=== PATIENT | male | born 1950 | race African-American/Black ===

== ENCOUNTER 2021-02-22 22:22 | Inpatient (IN) | payer OTHER, MEDICAID ==
[~2021-02-22] VITALS: Ht 167.6 cm; Wt 57.6 kg
[2021-02-22 23:18] LABS: Basophils # (auto) 0 10 ^3/uL (0-0.2); Basophils % (auto) 0.3 % (0.0-2.0); Eosinophils # (auto) 0.1 10 ^3/uL (0-0.8); Eosinophils % (auto) 0.6 % (0.0-7.0); Hematocrit 33.4 % (41.0-53.0); Hemoglobin 10.6 g/dL (13.5-17.5); Lymphocytes # (auto) 0.4 10 ^3/uL (0.4-5.4); Lymphocytes % (auto) 4.1 % (10.0-50.0); Mean Corpuscular Hemoglobin 29.1 pg (28.0-32.0); Mean Corpuscular Hgb Conc. 31.8 g/dL (32.0-36.0); Mean Corpuscular Volume 91.2 fL (80.0-100.0); Monocytes # (auto) 0.5 10 ^3/uL (0-1.3); Monocytes % (auto) 5.8 % (0.0-12.0); Neutrophils # (auto) 7.8 10 ^3/uL (1.6-8.6); Neutrophils % (auto) 89.2 % (37.0-80.0); Nucleated Red Blood Cells % 0.1 %; Red Blood Cells 3.66 10^6/uL (4.5-5.90); Red Cell Distribution Width 17.4 % (11.8-14.3); White Blood Cell 8.8 10^3/uL (4.4-10.8)
[2021-02-22 23:34] LABS: INR 1.1 (0.9-1.15); Partial Thromboplastin Time 29.3 sec (23.6-33.0)
[2021-02-22 23:41] LABS: Albumin 2.8 g/dL (3.4-5.0); BUN/Creatinine Ratio 9.7; Calcium 8.2 mg/dL (8.5-10.1); Magnesium 2.5 mg/dL (1.6-2.6)
[2021-02-22 23:46] LABS: Bilirubin, Total 0.5 mg/dL (0.2-1.0); Total Protein 7.2 g/dL (6.4-8.2)
[2021-02-22 23:53] LABS: Potassium 6.2 mmol/L (3.5-5.1)
[2021-02-23] MEDS ORDERED: CALCIUM GLUC 1,000mg/50ml-NS 50 ML IV ONE
[2021-02-23] MEDS ORDERED: SODIUM BICARBONATE 8.4% INJ 50ML SYRINGE IV ONE
[2021-02-23] MEDS ORDERED: InsuLIN REG 1unit/0.01ml Soln (100units/ml) IV ONE
[2021-02-23] MEDS ORDERED: SODIUM ZIRCONIUM CYCL 10 GM PAK PO ONE
[2021-02-23] MEDS ORDERED: DEXTROSE (50%) 50ML SYRG IV ONE
[2021-02-23] MEDS ORDERED: ACETAMINOPHEN 325 MG TAB PO ONE (03:45)
[2021-02-23] MEDS ORDERED: HEPARIN DRIP/D5W 100UNITS/ML 250 ML IV SCH ×4 (04:30→12:00)
[2021-02-23] MEDS ORDERED: HEPARIN SODIUM (PORCINE) 5000 UNITS/ML 1ML VIAL IV ONE (04:30)
[2021-02-23 05:28] LABS: Basophils # (auto) 0 10 ^3/uL (0-0.2); Basophils % (auto) 0.3 % (0.0-2.0); Eosinophils # (auto) 0.1 10 ^3/uL (0-0.8); Eosinophils % (auto) 1.2 % (0.0-7.0); Hematocrit 31.2 % (41.0-53.0); Hemoglobin 10.2 g/dL (13.5-17.5); Lymphocytes # (auto) 0.4 10 ^3/uL (0.4-5.4); Lymphocytes % (auto) 3.8 % (10.0-50.0); Mean Corpuscular Hemoglobin 29.7 pg (28.0-32.0); Mean Corpuscular Hgb Conc. 32.8 g/dL (32.0-36.0); Mean Corpuscular Volume 90.7 fL (80.0-100.0); Monocytes # (auto) 0.8 10 ^3/uL (0-1.3); Monocytes % (auto) 8.2 % (0.0-12.0); Neutrophils # (auto) 8.4 10 ^3/uL (1.6-8.6); Neutrophils % (auto) 86.5 % (37.0-80.0); Red Blood Cells 3.44 10^6/uL (4.5-5.90); Red Cell Distribution Width 16.8 % (11.8-14.3); White Blood Cell 9.7 10^3/uL (4.4-10.8)
[2021-02-23 05:49] LABS: INR 1.09 (0.9-1.15); Partial Thromboplastin Time 29.1 sec (23.6-33.0)
[2021-02-23] MEDS ORDERED: MORPHINE SULFATE INJECTION 2 MG/ML SYRG IV PRN (07:00)
[2021-02-23] MEDS ORDERED: DOCUSATE SOD 100 MG CAP PO PRN (07:00)
[2021-02-23] MEDS ORDERED: DEXTROSE (50%) 50ML SYRG IV PRN (07:00)
[2021-02-23] MEDS: ACCU-CHEK COMFORT CURVE STRIP VI SCH ×4 (07:00→21:24)
[2021-02-23] MEDS ORDERED: NITROGLYCERIN 0.4 MG SL TAB SL PRN (07:00)
[2021-02-23] MEDS: InsuLIN REG 1unit/0.01ml Soln (100units/ml) SC SCH ×2 (07:00→11:30)
[2021-02-23] MEDS ORDERED: ONDANSETRON HCL 4 MG/2 ML VIAL IV PRN (07:00)
[2021-02-23 07:44] LABS: Basophils # (auto) 0.1 10 ^3/uL (0-0.2); Basophils % (auto) 0.7 % (0.0-2.0); Eosinophils # (auto) 0.1 10 ^3/uL (0-0.8); Eosinophils % (auto) 0.9 % (0.0-7.0); Hematocrit 32.2 % (41.0-53.0); Hemoglobin 10.3 g/dL (13.5-17.5); Lymphocytes # (auto) 0.2 10 ^3/uL (0.4-5.4); Lymphocytes % (auto) 2.3 % (10.0-50.0); Mean Corpuscular Hemoglobin 29.1 pg (28.0-32.0); Mean Corpuscular Hgb Conc. 31.9 g/dL (32.0-36.0); Mean Corpuscular Volume 91.1 fL (80.0-100.0); Monocytes # (auto) 0.6 10 ^3/uL (0-1.3); Monocytes % (auto) 5.2 % (0.0-12.0); Neutrophils # (auto) 9.7 10 ^3/uL (1.6-8.6); Neutrophils % (auto) 90.9 % (37.0-80.0); Red Blood Cells 3.54 10^6/uL (4.5-5.90); Red Cell Distribution Width 17.1 % (11.8-14.3); White Blood Cell 10.7 10^3/uL (4.4-10.8)
[2021-02-23 07:58] LABS: Albumin 2.7 g/dL (3.4-5.0); BUN/Creatinine Ratio 9.5; Calcium 8.6 mg/dL (8.5-10.1)
[2021-02-23 08:01] LABS: Bilirubin, Total 0.4 mg/dL (0.2-1.0); Total Protein 7.2 g/dL (6.4-8.2)
[2021-02-23 08:16] LABS: Cholesterol 113 mg/dL (< 200)
[2021-02-23 08:19] LABS: HDL Cholesterol 73 mg/dL (40-59); LDL Cholesterol 32 mg/dL (< 100); Triglycerides 54 mg/dL (< 150)
[2021-02-23] MEDS ORDERED: SODIUM CHL 0.9% 1000 ML BAG XX ONE (09:45)
[2021-02-23] MEDS: ASCORBIC ACID 500 MG TAB PO SCH ×2 (10:00→21:24)
[2021-02-23] MEDS: MULTIPLE VITAMIN TAB PO SCH ×2 (10:00→21:24)
[2021-02-23] MEDS ORDERED: ZINC SULFATE 220mg CAP or TAB PO SCH (10:00)
[2021-02-23 10:42] LABS: Partial Thromboplastin Time > 139.0 sec (23.6-33.0)
[2021-02-23] MEDS: SODIUM CHLOR 0.9% PF (SALINE LOCK) 10ML VIAL/SYR IV SCH ×2 (14:00→21:24)
[2021-02-23 19:54] VITALS: BP 155/91
[2021-02-23] MEDS: HYDROcodone-ACET 5/325MG TAB PO PRN (21:28)
[2021-02-23] MEDS ORDERED: ONDANSETRON HCL 4 MG/2 ML VIAL ONE (21:31)
[2021-02-23 21:48] VITALS: BP 155/91
[2021-02-24] MEDS: HYDROcodone-ACET 5/325MG TAB PO PRN ×3 (01:45→22:00)
[2021-02-24 05:30] VITALS: BP 144/72
[2021-02-24] MEDS: ACCU-CHEK COMFORT CURVE STRIP VI SCH ×4 (06:09→22:22)
[2021-02-24] MEDS: SODIUM CHLOR 0.9% PF (SALINE LOCK) 10ML VIAL/SYR IV SCH ×3 (06:09→22:22)
[2021-02-24 09:00] VITALS: BP 155/77
[2021-02-24 11:01] LABS: Basophils # (auto) 0 10 ^3/uL (0-0.2); Basophils % (auto) 0.4 % (0.0-2.0); Eosinophils # (auto) 0 10 ^3/uL (0-0.8); Eosinophils % (auto) 0.5 % (0.0-7.0); Hematocrit 30.9 % (41.0-53.0); Lymphocytes # (auto) 0.4 10 ^3/uL (0.4-5.4); Lymphocytes % (auto) 4.5 % (10.0-50.0); Mean Corpuscular Hemoglobin 29.4 pg (28.0-32.0); Mean Corpuscular Hgb Conc. 32.2 g/dL (32.0-36.0); Mean Corpuscular Volume 91.1 fL (80.0-100.0); Monocytes # (auto) 0.6 10 ^3/uL (0-1.3); Monocytes % (auto) 7.1 % (0.0-12.0); Neutrophils # (auto) 7.6 10 ^3/uL (1.6-8.6); Neutrophils % (auto) 87.5 % (37.0-80.0); Red Cell Distribution Width 16.8 % (11.8-14.3); White Blood Cell 8.7 10^3/uL (4.4-10.8)
[2021-02-24 11:22] LABS: Albumin 2.7 g/dL (3.4-5.0); Calcium 8.1 mg/dL (8.5-10.1); Potassium 5.4 mmol/L (3.5-5.1)
[2021-02-24 11:26] LABS: BUN/Creatinine Ratio 9.4; Bilirubin, Total 0.3 mg/dL (0.2-1.0); Total Protein 7.2 g/dL (6.4-8.2)
[2021-02-24] MEDS ORDERED: cefTRIAXone 1GM/50ML D5W 50 ML IV ONE (11:30)
[2021-02-24] MEDS: ASCORBIC ACID 500 MG TAB PO SCH ×2 (12:04→22:22)
[2021-02-24] MEDS ORDERED: PIPERACILLIN-TAZOB 2.25GM 0.75 GM in D5W 5% 50 ML IV SCH (12:30)
[2021-02-24 13:00] VITALS: BP 150/78
[2021-02-24] MEDS ORDERED: PIPERACILLIN-TAZOB 2.25GM 50 ML IV ONE (13:45)
[2021-02-24 17:00] VITALS: BP 123/94
[2021-02-24] MEDS: ACETAMINOPHEN 325 MG TAB PO PRN (20:40)
[2021-02-24 22:00] VITALS: BP 158/82
[2021-02-24] MEDS: PIPERACILLIN-TAZOB 2.25GM 50 ML IV SCH (22:22)
[2021-02-25] MEDS: HYDROcodone-ACET 5/325MG TAB PO PRN ×2 (01:55→09:06)
[2021-02-25 05:00] VITALS: BP 186/88
[2021-02-25] MEDS: SODIUM CHLOR 0.9% PF (SALINE LOCK) 10ML VIAL/SYR IV SCH ×3 (05:11→21:57)
[2021-02-25] MEDS: ACCU-CHEK COMFORT CURVE STRIP VI SCH ×4 (05:11→21:58)
[2021-02-25] MEDS: hydrALAZINE HCL 20 MG/ML VL IV PRN (05:41)
[2021-02-25 09:00] VITALS: BP 114/62
[2021-02-25] MEDS ORDERED: cefTRIAXone 1GM/50ML D5W 50 ML IV SCH (09:00)
[2021-02-25 10:03] LABS: Basophils # (auto) 0 10 ^3/uL (0-0.2); Basophils % (auto) 0.3 % (0.0-2.0); Eosinophils # (auto) 0.1 10 ^3/uL (0-0.8); Eosinophils % (auto) 1.3 % (0.0-7.0); Hematocrit 29.7 % (41.0-53.0); Hemoglobin 9.5 g/dL (13.5-17.5); Lymphocytes # (auto) 0.7 10 ^3/uL (0.4-5.4); Lymphocytes % (auto) 7.2 % (10.0-50.0); Mean Corpuscular Hemoglobin 29.6 pg (28.0-32.0); Mean Corpuscular Hgb Conc. 31.9 g/dL (32.0-36.0); Mean Corpuscular Volume 92.8 fL (80.0-100.0); Monocytes # (auto) 0.9 10 ^3/uL (0-1.3); Monocytes % (auto) 9.7 % (0.0-12.0); Neutrophils # (auto) 7.4 10 ^3/uL (1.6-8.6); Neutrophils % (auto) 81.5 % (37.0-80.0); Nucleated Red Blood Cells % 0.1 %; Red Cell Distribution Width 16.8 % (11.8-14.3); White Blood Cell 9.1 10^3/uL (4.4-10.8)
[2021-02-25 10:12] LABS: Albumin 2.7 g/dL (3.4-5.0); BUN/Creatinine Ratio 9.4; Calcium 7.7 mg/dL (8.5-10.1); Potassium 5.3 mmol/L (3.5-5.1)
[2021-02-25 10:15] LABS: Bilirubin, Total 0.3 mg/dL (0.2-1.0); Total Protein 6.6 g/dL (6.4-8.2)
[2021-02-25] MEDS: MULTIPLE VITAMIN TAB PO SCH (10:59)
[2021-02-25] MEDS: PIPERACILLIN-TAZOB 2.25GM 50 ML IV SCH ×2 (10:59→21:58)
[2021-02-25] MEDS: ASCORBIC ACID 500 MG TAB PO SCH ×2 (10:59→21:58)
[2021-02-25 13:00] VITALS: BP 146/72
[2021-02-25 17:00] VITALS: BP 150/71
[2021-02-25] MEDS: ACETAMINOPHEN 325 MG TAB PO PRN (21:59)
[2021-02-25 22:00] VITALS: BP 126/60
[2021-02-26 05:00] VITALS: BP 176/82
[2021-02-26 05:27] LABS: Basophils # (auto) 0.1 10 ^3/uL (0-0.2); Basophils % (auto) 0.8 % (0.0-2.0); Eosinophils # (auto) 0.1 10 ^3/uL (0-0.8); Eosinophils % (auto) 1.6 % (0.0-7.0); Hematocrit 29.1 % (41.0-53.0); Hemoglobin 9.4 g/dL (13.5-17.5); Lymphocytes # (auto) 0.4 10 ^3/uL (0.4-5.4); Lymphocytes % (auto) 5.7 % (10.0-50.0); Mean Corpuscular Hemoglobin 29.7 pg (28.0-32.0); Mean Corpuscular Hgb Conc. 32.2 g/dL (32.0-36.0); Mean Corpuscular Volume 92.1 fL (80.0-100.0); Monocytes # (auto) 0.8 10 ^3/uL (0-1.3); Neutrophils # (auto) 6.4 10 ^3/uL (1.6-8.6); Neutrophils % (auto) 81.9 % (37.0-80.0); Red Blood Cells 3.16 10^6/uL (4.5-5.90); Red Cell Distribution Width 16.9 % (11.8-14.3); White Blood Cell 7.8 10^3/uL (4.4-10.8)
[2021-02-26 06:09] LABS: Albumin 2.6 g/dL (3.4-5.0); BUN/Creatinine Ratio 9.2; Bilirubin, Total 0.3 mg/dL (0.2-1.0); Calcium 8.2 mg/dL (8.5-10.1); Total Protein 6.8 g/dL (6.4-8.2)
[2021-02-26] MEDS: ACCU-CHEK COMFORT CURVE STRIP VI SCH ×4 (06:29→23:50)
[2021-02-26] MEDS: SODIUM CHLOR 0.9% PF (SALINE LOCK) 10ML VIAL/SYR IV SCH ×3 (06:30→22:00)
[2021-02-26] MEDS: SODIUM ZIRCONIUM CYCL 10 GM PAK PO SCH ×3 (07:58→23:27)
[2021-02-26 09:00] VITALS: BP 176/84
[2021-02-26 09:39] LABS: Hepatitis A Ab IgM Negative
[2021-02-26 09:40] LABS: Hepatitis B Core IgM Negative; Hepatitis B Surface Antigen Negative (Negative); Hepatitis C Antibody Negative (Negative)
[2021-02-26] MEDS ORDERED: SODIUM ZIRCONIUM CYCL 10 GM PAK PO ONE (10:00)
[2021-02-26] MEDS: PIPERACILLIN-TAZOB 2.25GM 50 ML IV SCH ×2 (10:04→23:27)
[2021-02-26] MEDS: ASCORBIC ACID 500 MG TAB PO SCH ×2 (10:05→22:00)
[2021-02-26] MEDS: MULTIPLE VITAMIN TAB PO SCH (10:05)
[2021-02-26 13:00] VITALS: BP 184/86
[2021-02-26] MEDS ORDERED: InsuLIN REG 1unit/0.01ml Soln (100units/ml) IV ONE (15:00)
[2021-02-26] MEDS ORDERED: DEXTROSE (50%) 50ML SYRG IV ONE (15:00)
[2021-02-26 17:00] VITALS: BP 185/90
[2021-02-26] MEDS: amLODIPine BESYLATE 5 MG TAB PO SCH (17:35)
[2021-02-26 22:00] VITALS: BP 175/72
[2021-02-26] MEDS ORDERED: METOPROLOL TARTRATE 25 MG TAB PO SCH (22:00)
[2021-02-26] MEDS: hydrALAZINE HCL 20 MG/ML VL IV PRN (23:24)
[2021-02-26 23:51] VITALS: BP 131/60
[2021-02-27 05:00] VITALS: BP 160/83
[2021-02-27] MEDS: SODIUM CHLOR 0.9% PF (SALINE LOCK) 10ML VIAL/SYR IV SCH ×3 (05:26→20:51)
[2021-02-27 06:04] LABS: Basophils # (auto) 0 10 ^3/uL (0-0.2); Basophils % (auto) 0.5 % (0.0-2.0); Eosinophils # (auto) 0 10 ^3/uL (0-0.8); Eosinophils % (auto) 0.2 % (0.0-7.0); Hematocrit 32.4 % (41.0-53.0); Hemoglobin 10.5 g/dL (13.5-17.5); Lymphocytes # (auto) 0.3 10 ^3/uL (0.4-5.4); Lymphocytes % (auto) 4.5 % (10.0-50.0); Mean Corpuscular Hemoglobin 29.7 pg (28.0-32.0); Mean Corpuscular Hgb Conc. 32.5 g/dL (32.0-36.0); Mean Corpuscular Volume 91.4 fL (80.0-100.0); Monocytes # (auto) 0.3 10 ^3/uL (0-1.3); Monocytes % (auto) 3.9 % (0.0-12.0); Neutrophils # (auto) 6.8 10 ^3/uL (1.6-8.6); Neutrophils % (auto) 90.9 % (37.0-80.0); Nucleated Red Blood Cells % 0.1 %; Red Blood Cells 3.54 10^6/uL (4.5-5.90); Red Cell Distribution Width 17.2 % (11.8-14.3); White Blood Cell 7.5 10^3/uL (4.4-10.8)
[2021-02-27] MEDS: ACCU-CHEK COMFORT CURVE STRIP VI SCH ×4 (06:14→22:28)
[2021-02-27] MEDS: hydrALAZINE HCL 20 MG/ML VL IV PRN ×2 (06:20→18:30)
[2021-02-27] MEDS: SODIUM ZIRCONIUM CYCL 10 GM PAK PO SCH ×3 (06:21→22:28)
[2021-02-27 06:37] LABS: Albumin 2.8 g/dL (3.4-5.0); BUN/Creatinine Ratio 10.6; Bilirubin, Total 0.4 mg/dL (0.2-1.0); Calcium 8.1 mg/dL (8.5-10.1); Total Protein 7.3 g/dL (6.4-8.2)
[2021-02-27] MEDS ORDERED: SODIUM CHL 0.9% 1000 ML BAG XX ONE (07:00)
[2021-02-27 07:02] VITALS: BP 164/78
[2021-02-27 07:07] LABS: Potassium 5.6 mmol/L (3.5-5.1)
[2021-02-27 09:00] VITALS: BP 166/76
[2021-02-27] MEDS: PIPERACILLIN-TAZOB 2.25GM 50 ML IV SCH ×2 (11:00→20:51)
[2021-02-27 13:00] VITALS: BP 138/79
[2021-02-27] MEDS: levoFLOXacin 250MG 50 ML IV SCH (13:30)
[2021-02-27] MEDS: MULTIPLE VITAMIN TAB PO SCH (13:30)
[2021-02-27] MEDS: ASCORBIC ACID 500 MG TAB PO SCH ×2 (13:30→20:41)
[2021-02-27] MEDS: amLODIPine BESYLATE 5 MG TAB PO SCH (13:34)
[2021-02-27 16:39] VITALS: BP 185/79
[2021-02-27] MEDS: ACETAMINOPHEN 325 MG TAB PO PRN (19:54)
[2021-02-27] MEDS ORDERED: EPOETIN ALFA-EPBX 10,000 UNIT/1ML VIAL SC ONE (21:00)
[2021-02-27 22:00] VITALS: BP 144/64
[2021-02-28 05:00] VITALS: BP 163/75
[2021-02-28] MEDS: SODIUM CHLOR 0.9% PF (SALINE LOCK) 10ML VIAL/SYR IV SCH ×3 (05:40→21:54)
[2021-02-28] MEDS: SODIUM ZIRCONIUM CYCL 10 GM PAK PO SCH ×2 (05:40→14:10)
[2021-02-28] MEDS: ACCU-CHEK COMFORT CURVE STRIP VI SCH ×4 (07:59→21:54)
[2021-02-28 09:00] VITALS: BP 158/77
[2021-02-28] MEDS: ASCORBIC ACID 500 MG TAB PO SCH (09:41)
[2021-02-28] MEDS: MULTIPLE VITAMIN TAB PO SCH (09:41)
[2021-02-28] MEDS: METOPROLOL TARTRATE 25 MG TAB PO SCH (09:42)
[2021-02-28] MEDS: PIPERACILLIN-TAZOB 2.25GM 50 ML IV SCH (09:43)
[2021-02-28] MEDS: amLODIPine BESYLATE 5 MG TAB PO SCH (09:43)
[2021-02-28 14:20] VITALS: BP 143/79
[2021-02-28 15:55] LABS: BUN/Creatinine Ratio 8.5; Calcium 7.7 mg/dL (8.5-10.1); Potassium 3.8 mmol/L (3.5-5.1)
[2021-02-28] MEDS: ACETAMINOPHEN 325 MG TAB PO PRN (15:55)
[2021-02-28 16:00] LABS: INR 1.21 (0.9-1.15); Partial Thromboplastin Time 30.6 sec (23.6-33.0)
[2021-02-28 16:59] VITALS: BP 144/73
[2021-02-28 22:00] VITALS: BP 165/87
[2021-02-28] MEDS: hydrALAZINE HCL 20 MG/ML VL IV PRN (22:41)
[2021-03-01] VITALS (8 sets, daily range): BP systolic 140–164; BP diastolic 66–74
[2021-03-01] MEDS: hydrALAZINE HCL 20 MG/ML VL IV PRN ×2 (05:03→22:32)
[2021-03-01 06:23] LABS: Basophils # (auto) 0.1 10 ^3/uL (0-0.2); Basophils % (auto) 0.9 % (0.0-2.0); Eosinophils # (auto) 0.1 10 ^3/uL (0-0.8); Eosinophils % (auto) 1.1 % (0.0-7.0); Hemoglobin 9.3 g/dL (13.5-17.5); Lymphocytes # (auto) 0.8 10 ^3/uL (0.4-5.4); Lymphocytes % (auto) 9.1 % (10.0-50.0); Mean Corpuscular Hemoglobin 29.3 pg (28.0-32.0); Mean Corpuscular Hgb Conc. 32.1 g/dL (32.0-36.0); Mean Corpuscular Volume 91.3 fL (80.0-100.0); Monocytes # (auto) 0.9 10 ^3/uL (0-1.3); Neutrophils # (auto) 6.9 10 ^3/uL (1.6-8.6); Neutrophils % (auto) 78.9 % (37.0-80.0); Nucleated Red Blood Cells % 0.1 %; Red Blood Cells 3.18 10^6/uL (4.5-5.90); Red Cell Distribution Width 17.4 % (11.8-14.3); White Blood Cell 8.7 10^3/uL (4.4-10.8)
[2021-03-01] MEDS: SODIUM CHLOR 0.9% PF (SALINE LOCK) 10ML VIAL/SYR IV SCH ×3 (06:30→21:31)
[2021-03-01 06:34] LABS: Calcium 7.9 mg/dL (8.5-10.1)
[2021-03-01 06:39] LABS: BUN/Creatinine Ratio 7.2
[2021-03-01] MEDS: ACCU-CHEK COMFORT CURVE STRIP VI SCH ×4 (06:42→21:31)
[2021-03-01] MEDS ORDERED: SODIUM CHL 0.9% 1000 ML BAG XX ONE (07:00)
[2021-03-01] MEDS: ALBUTEROL SULF 2.5 MG/0.5ML(0.5%) NEB SOLN NEB PRN ×2 (08:31→19:54)
[2021-03-01] MEDS: METOPROLOL TARTRATE 25 MG TAB PO SCH (08:47)
[2021-03-01] MEDS: amLODIPine BESYLATE 5 MG TAB PO SCH (08:48)
[2021-03-01] MEDS: levoFLOXacin 250MG 50 ML IV SCH (08:48)
[2021-03-01] MEDS: MULTIPLE VITAMIN TAB PO SCH (08:48)
[2021-03-01] MEDS ORDERED: HYDROcodone-ACET 7.5/325MG TAB PO ONE (20:45)
[2021-03-01] MEDS ORDERED: EPOETIN ALFA-EPBX 10,000 UNIT/1ML VIAL SC ONE (21:00)
[2021-03-02] MEDS: ALBUTEROL SULF 2.5 MG/0.5ML(0.5%) NEB SOLN NEB PRN ×3 (00:17→19:07)
[2021-03-02 05:00] VITALS: BP 147/78
[2021-03-02] MEDS: SODIUM CHLOR 0.9% PF (SALINE LOCK) 10ML VIAL/SYR IV SCH ×3 (05:56→21:43)
[2021-03-02] MEDS: ACCU-CHEK COMFORT CURVE STRIP VI SCH ×4 (07:15→21:57)
[2021-03-02 09:00] VITALS: BP 167/71
[2021-03-02] MEDS: MULTIPLE VITAMIN TAB PO SCH (09:12)
[2021-03-02] MEDS: METOPROLOL TARTRATE 25 MG TAB PO SCH (09:12)
[2021-03-02] MEDS: amLODIPine BESYLATE 5 MG TAB PO SCH (09:13)
[2021-03-02 13:00] VITALS: BP 137/72
[2021-03-02] MEDS ORDERED: APIXABAN 5 MG TAB PO SCH ×2 (13:00→22:00)
[2021-03-02] MEDS: APIXABAN 5 MG TAB PO SCH ×2 (13:31→21:43)
[2021-03-02 17:00] VITALS: BP 129/57
[2021-03-02 22:00] VITALS: BP 142/81
[2021-03-03 05:00] VITALS: BP 131/77
[2021-03-03] MEDS: SODIUM CHLOR 0.9% PF (SALINE LOCK) 10ML VIAL/SYR IV SCH ×2 (05:28→14:40)
[2021-03-03] MEDS: ACETAMINOPHEN 325 MG TAB PO PRN (05:28)
[2021-03-03] MEDS: ACCU-CHEK COMFORT CURVE STRIP VI SCH ×2 (05:50→11:30)
[2021-03-03 09:00] VITALS: BP 142/76
[2021-03-03] MEDS: levoFLOXacin 250MG 50 ML IV SCH (09:15)
[2021-03-03] MEDS: APIXABAN 5 MG TAB PO SCH (09:54)
[2021-03-03] MEDS: MULTIPLE VITAMIN TAB PO SCH (09:54)
[2021-03-03] MEDS: amLODIPine BESYLATE 5 MG TAB PO SCH (09:55)
[2021-03-03] MEDS: METOPROLOL TARTRATE 25 MG TAB PO SCH (09:59)
[2021-03-03] MEDS: ALBUTEROL SULF 2.5 MG/0.5ML(0.5%) NEB SOLN NEB PRN (10:50)
[2021-03-03] MEDS ORDERED: SODIUM CHLORIDE 0.9 % NEB SOLN 3ML NEB ONE (12:31)
[2021-03-03 12:53] VITALS: BP 88/60
== END 2021-03-03 16:56 | disposition home or self-care (01) | DRG 871 ==
LOC: ER 22:22 → EDBD 22:22 → TELE 02-23 07:00 → TELE-WESTW 02-23 19:50
PROVIDERS: ADMIT Nurse Practitioner Family; ATTEND Internal Medicine Nephrology
PROC: 5A1D70Z Performance of Urinary Filtration, Intermittent, Less than 6 Hours Per Day (ICD-10-PCS; principal; 2021-02-23)
PROC: 5A1D70Z Performance of Urinary Filtration, Intermittent, Less than 6 Hours Per Day (ICD-10-PCS; 2021-02-27)
PROC: 5A1D70Z Performance of Urinary Filtration, Intermittent, Less than 6 Hours Per Day (ICD-10-PCS; 2021-03-01)
PROC: 0W993ZZ Drainage of Right Pleural Cavity, Percutaneous Approach (ICD-10-PCS; 2021-03-01)
DX: A41.50 Gram-negative sepsis, unspecified (principal); N18.6 End stage renal disease; J96.21 Acute and chronic respiratory failure with hypoxia; R64 Cachexia; J98.11 Atelectasis; I82.622 Acute embolism and thrombosis of deep veins of left upper extremity; I13.2 Hypertensive heart and chronic kidney disease with heart failure and with stage 5 chronic kidney disease, or end stage renal disease; J90 Pleural effusion, not elsewhere classified; E87.5 Hyperkalemia; E88.09 Other disorders of plasma-protein metabolism, not elsewhere classified; I50.9 Heart failure, unspecified; I27.20 Pulmonary hypertension, unspecified; D63.1 Anemia in chronic kidney disease; G89.29 Other chronic pain; I36.1 Nonrheumatic tricuspid (valve) insufficiency; E11.22 Type 2 diabetes mellitus with diabetic chronic kidney disease; E11.40 Type 2 diabetes mellitus with diabetic neuropathy, unspecified; Z20.822 Contact with and (suspected) exposure to COVID-19; Z99.2 Dependence on renal dialysis; Z68.20 Body mass index [BMI] 20.0-20.9, adult
CPT/HCPCS: 32555; 36415; 71045; 76604; 76942; 80048; 80053; 80061; 80074; 82947; 82962; 83036; 83615; 83735; 83880; 83986; 84484; 85025; 85379; 85610; 85730; 87040; 87077; 87186; 87205; 87426; 89051; 90935; 93005; 93306; 93971; 94640; 96365; 96367; 96375; G0378; J0696; J1642; J1815; J2405; J2543